=== PATIENT | male | born 1990 | race American Indian/Alaskan Native ===

== ENCOUNTER 2019-08-03 16:30 | Emergency (ER) | payer OTHER, SELFPAY ==
[2019-08-03 16:33] VITALS: BP 118/77; PULSE 66; RESP 14; TEMP 36.7; O2SAT 100
--- NOTE | 2019-08-03 16:55 | DI.RAD.S_ITS ---
PROCEDURE: XR CHEST 2V INDICATIONS: near syncopal episode TECHNIQUE: 2 views of the chest were acquired. COMPARISON: None. FINDINGS: Surgical changes and devices: None. Lungs and pleura: Lungs are clear. No pleural effusions or pneumothorax. Mediastinum: Mediastinal contours are normal. Heart size is normal. Bones and chest wall: No suspicious bony abnormalities. Soft tissues appear unremarkable. IMPRESSION: No acute cardiopulmonary findings. Dictated by: Marisela Russell M.D. on 08/03/2019 at 17:26 Approved by: Marisela Russell M.D. on 08/03/2019 at 17:26
[2019-08-03 17:14] LABS: Add Manual Diff / Slide Review NO; Basophils Absolute Auto 100 /uL (0-100); Basophils Percent Auto 0.9 % (0-2); Eosinophils Absolute Auto 100 /uL (0-450); Eosinophils Percent Auto 1.7 % (2-4); Hematocrit 41.8 % (41-53); Hemoglobin 14.5 g/dL (13.5-17.5); Lymphocytes Absolute Auto 1300 /uL (1100-4500); Lymphocytes Percent Auto 15.8 % (25-40); Mean Corpuscular HGB Conc 34.7 % (30-36); Mean Corpuscular Hemoglobin 29.5 PG (26-34); Mean Corpuscular Volume 84.9 fL (80-100); Monocytes Absolute Auto 700 /uL (0-900); Monocytes Percent Auto 8.4 % (3-14); Neutrophils Absolute Auto 6100 /uL (1500-7000); Neutrophils Percent Auto 73.2 % (50-75); Platelet Count 248 X10^3/uL (150-400); Red Blood Cell Count 4.92 X10^6/uL (4.5-5.9); Red Cell Distribution Width 13.9 % (11.6-14.8); White Blood Cell Count 8.3 X10^3/uL (4.5-11.0)
[2019-08-03] MEDS: SODIUM CHLORIDE 0.9% 1,000 ML 1000 ML IV (17:16)
[2019-08-03 17:28] LABS: Alanine Aminotransferase 23 IU/L (21-72); Albumin 4.4 g/dL (3.5-5.0); Albumin Globulin Ratio 1.4 (1.0-2.8); Alkaline Phosphatase 58 U/L (38-126); Aspartate Aminotransferase 28 IU/L (17-59); Bilirubin Total 0.9 mg/dL (0.2-1.3); Blood Urea Nitrogen 15 mg/dL (9-20); Calcium 9.1 mg/dL (8.4-10.2); Carbon Dioxide 28 mmol/L (22-32); Chloride 99 mmol/L (98-107); Estimated Glomerular Filt Rate > 60.0 mL/min (>60); Globulin 3.1 g/dL (1.7-4.1); Glucose 98 mg/dL (70-100); HEMOLYSIS < 15 (0-50); Potassium 4.7 mmol/L (3.4-5.1); Sodium 136 mmol/L (137-145); Total Protein 7.5 g/dL (6.3-8.2)
[2019-08-03 17:40] LABS: Troponin I < 0.012 ng/mL (0.01-0.034)
--- NOTE | 2019-08-03 17:47 | ED.SYNCOPE ---
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 Patient reports he felt lightheaded and sweaty, had blurred vision, was pale prior the near syncopal episode at work today. He denied since spinning sensation, chest pain, palpitation, irregular heart rhythm, breathing difficulty prior to this. Patient reports he fell well yesterday and this morning. He denied nausea, vomiting, or diarrhea, or any abdominal pain. He had not had similar symptoms in the past. 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 He felt improved after this but was unable to seen by medical personnel [place] and came to ED for an evaluation. He denies using illicit substances and is very light occasional drinker. Patient denies have premature from cardiac history in family. Related Data Allergies Allergy/AdvReac Type Severity Reaction Status Date / Time No Known Drug Allergies Allergy Verified 08/03/19 16:35 Review of Systems <LESVIA Juan - Last Filed: 08/04/19 01:12> Review of Systems Narrative: General: Denies fever, chills, fatigue, malaise, sweats. HEENT: See HPI Respiratory: Denies dyspnea, cough, wheezing, hemoptysis, sputum. Cardiovascular: Denies chest pain, palpitations, orthopnea, edema. Gastrointestinal: Denies nausea, vomiting, abdominal pain, diarrhea, constipation, melena. : Denies dysuria, frequency, incontinence, hematuria, urinary retention. Musculoskeletal: Denies weakness, joint pain or bony pain. Skin: Denies rash, skin lesions, or other. Neurologic: Denies weakness, headache, numbness, change in speech, confusion, seizures, incoordination. Psychiatric: No concerning psychosocial issues. 12-point review of systems is negative except for those stated above. PFSH <LESVIA Juan - Last Filed: 08/04/19 01:12> Social History Smoking Status: Never smoker Social History Smoking Status: Never smoker Exam <LESVIA Juan - Last Filed: 08/04/19 01:12> Narrative Exam Narrative: General appearance: well developed, well nourished, in no acute distress. Head: normocephalic, atraumatic, no scalp lesions, non-tender. Eye: pupil equal, round. EOMI. Nose: nares patent. Oral: mucosa moist. Neck/Thyroid: neck supple, full range of motion, no visible masses. Skin: no suspicious rashes, lesions over visible areas. Warm and dry. Heart: no clubbing, no cyanosis, no edema. Lungs: Breathing even and unlabored. No stridor. No accessory muscles used. Chest: normal shape and expansion. Abdomen: non-obese, non-distended. Neurologic: alert and oriented. Cognitive exam, MANAGER SAP and PNS grossly intact on informal exam. Psych: good eye contact, normal affect. Initial Vital Signs Initial Vital Signs: Vital Signs Temperature 98.1 F 08/03/19 16:33 Pulse Rate 66 08/03/19 16:33 Respiratory Rate 14 08/03/19 16:33 Blood Pressure 118/77 08/03/19 16:33 Pulse Oximetry 100 08/03/19 16:33 <Manish Huber DO - Last Filed: 08/11/19 19:15> Initial Vital Signs Initial Vital Signs: Vital Signs Temperature 98.1 F 08/03/19 16:33 Pulse Rate 66 08/03/19 16:33 Respiratory Rate 14 08/03/19 16:33 Blood Pressure 118/77 08/03/19 16:33 Pulse Oximetry 100 08/03/19 16:33 Scores <LESVIA Juan - Last Filed: 08/04/19 01:12> GCS [place] coma scale eye opening: Spontaneous [place] coma scale verbal response: Orientated [place] coma scale motor response: Obey commands [place] coma scale total score: 15 Course <LESVIA Juan - Last Filed: 08/04/19 01:12> Orders Ordered: Discontinued Medications Sodium Chloride (Normal Saline 0.9%) 1,000 mls @ 1,000 mls/hr IV BOLUS ONE Stop: 08/03/19 17:54 Last Infusion: 08/03/19 18:41 Dose: 0 mls/hr Documented by: Admin: 08/03/19 17:16 Dose: 1,000 mls/hr Documented by: ROSALINDA Vital Signs Vital signs: Vital Signs - 8 hr 08/03/19 18:00 Pulse Rate 61 Respiratory Rate 13 Blood Pressure [Left Arm] 124/75 Pulse Oximetry 98 <Manish Huber DO - Last Filed: 08/11/19 19:15> Orders Ordered: Discontinued Medications Sodium Chloride (Normal Saline 0.9%) 1,000 mls @ 1,000 mls/hr IV BOLUS ONE Stop: 08/03/19 17:54 Last Infusion: 08/03/19 18:41 Dose: 0 mls/hr Documented by: Admin: 08/03/19 17:16 Dose: 1,000 mls/hr Documented by: ROSALINDA Vital Signs Vital signs: Vital Signs - 8 hr 08/03/19 18:00 Pulse Rate 61 Respiratory Rate 13 Blood Pressure [Left Arm] 124/75 Pulse Oximetry 98 MDM - Syncope <LESVIA Juan - Last Filed: 08/04/19 01:12> Differential Diagnosis Differential diagnosis: Likely other (near syncope, dehydration, low blood sugar) Medical Records Attestation: I reviewed the patient's medical records. Lab Data Attestation: I reviewed the patient's lab results. Result diagrams: 08/03/19 17:09 08/03/19 17:09 Labs: Lab Results 08/03/19 08/03/19 Range/Units 17:09 17:09 WBC 8.3 (4.5-11.0) X10^3/uL RBC 4.92 (4.5-5.9) X10^6/uL Hgb 14.5 (13.5-17.5) g/dL Hct 41.8 (41-53) % MCV 84.9 (80-100) fL MCH 29.5 (26-34) PG MCHC 34.7 (30-36) % RDW 13.9 (11.6-14.8) % Plt Count 248 (150-400) X10^3/uL Neut % (Auto) 73.2 (50-75) % Lymph % (Auto) 15.8 L (25-40) % [place] % (Auto) 8.4 (3-14) % Eos % (Auto) 1.7 L (2-4) % Baso % (Auto) 0.9 (0-2) % Neut # (Auto) 6100 (7781-3506) /uL Lymph # (Auto) 1300 (3429-7592) /uL [place] # (Auto) 700 (0-900) /uL Eos # (Auto) 100 (0-450) /uL Baso # (Auto) 100 (0-100) /uL Sodium 136 L (137-145) mmol/L Potassium 4.7 (3.4-5.1) mmol/L Chloride 99 (98-107) mmol/L Carbon Dioxide 28 (22-32) mmol/L BUN 15 (9-20) mg/dL Creatinine 1.00 (0.66-1.25) mg/dL Estimated GFR > 60.0 (>60) mL/min BUN/Creatinine Ratio 15.0 (6-22) Glucose 98 (70-100) mg/dL Calcium 9.1 (8.4-10.2) mg/dL Total Bilirubin 0.9 (0.2-1.3) mg/dL AST 28 (17-59) IU/L ALT 23 (21-72) IU/L Alkaline Phosphatase 58 (38-126) U/L Troponin I < 0.012 (0.01-0.034) ng/mL Total Protein 7.5 (6.3-8.2) g/dL Albumin 4.4 (3.5-5.0) g/dL Globulin 3.1 (1.7-4.1) g/dL Albumin/Globulin Ratio 1.4 (1.0-2.8) Urine Dip Bedside Urine Glucose Negative Bedside Urine Ketone - Negative Urine Specific [place] 1.005 Bedside Urine Occult Blood - Negative Bedside Urine pH 6.5 Bedside Urine Protein - Negative Bedside Urine Urobilinogen - Negative Bedside Urine Nitrite - Negative Bedside Urine Leukocytes - Negative Esterase Imaging Data Chest x-ray: Radiologist's impression: [address] [address] XRay Report Signed Patient: Davi Tony#: [id number] : 1990Acct:[id number] Age/Sex: MDate of Service: 08/03/19 Loc: ED Accession Number: [id number] Procedure: XR chest 2V Ordering Provider: Calixto Jordan PROCEDURE: XR CHEST 2V INDICATIONS: near syncopal episode TECHNIQUE: 2 views of the chest were acquired. COMPARISON: None. FINDINGS: Surgical changes and devices: None. Lungs and pleura: Lungs are clear. No pleural effusions or pneumothorax. Mediastinum: Mediastinal contours are normal. Heart size is normal. Bones and chest wall: No suspicious bony abnormalities. Soft tissues appear unremarkable. IMPRESSION: No acute cardiopulmonary findings. Dictated by: Marisela Russell M.D. on 08/03/2019 at 17:26 Approved by: Marisela Russell M.D. on 08/03/2019 at 17:26 ECG Data Attestation: I personally reviewed and interpreted this ECG as follows: Prior ECG tracings: not available for review Interpretation: Sinus rhythm at rate 60. Normal [place]. No ST depression or elevation. MDM Narrative Medical decision making narrative: The patient presents to ED with near syncopal episode at work. However when he came in to ED his symptoms were resolved. Patient denies recent illness or chronic medical problems in the past. The EKG was normal sinus rhythm. Chest x-ray showed no acute findings. Blood tests were unremarkable including troponin. Urine test was negative for infection. Patient denied having any discomfort, he works in door and felt well and denied having any pain prior to the incident. The patient had hydrating himself with sports drink prior coming into ED and he felt improved at this time. He also was hydrated with normal saline 1 L during ED stay. His physical exam was benign. I am uncertain why patient had near syncopal episode at this time. I discussed with patient on return precautions. Patient was advised to follow up with [place] [facility] for possible further testing and evaluations if he has recurring symptoms. <Manish Huber, - Last Filed: 08/11/19 19:15> Lab Data Labs: Lab Results 08/03/19 08/03/19 Range/Units 17:09 17:09 WBC 8.3 (4.5-11.0) X10^3/uL RBC 4.92 (4.5-5.9) X10^6/uL Hgb 14.5 (13.5-17.5) g/dL Hct 41.8 (41-53) % MCV 84.9 (80-100) fL MCH 29.5 (26-34) PG MCHC 34.7 (30-36) % RDW 13.9 (11.6-14.8) % Plt Count 248 (150-400) X10^3/uL Neut % (Auto) 73.2 (50-75) % Lymph % (Auto) 15.8 L (25-40) % [place] % (Auto) 8.4 (3-14) % Eos % (Auto) 1.7 L (2-4) % Baso % (Auto) 0.9 (0-2) % Neut # (Auto) 6100 (7821-7770) /uL Lymph # (Auto) 1300 (7935-7553) /uL [place] # (Auto) 700 (0-900) /uL Eos # (Auto) 100 (0-450) /uL Baso # (Auto) 100 (0-100) /uL Sodium 136 L (137-145) mmol/L Potassium 4.7 (3.4-5.1) mmol/L Chloride 99 (98-107) mmol/L Carbon Dioxide 28 (22-32) mmol/L BUN 15 (9-20) mg/dL Creatinine 1.00 (0.66-1.25) mg/dL Estimated GFR > 60.0 (>60) mL/min BUN/Creatinine Ratio 15.0 (6-22) Glucose 98 (70-100) mg/dL Calcium 9.1 (8.4-10.2) mg/dL Total Bilirubin 0.9 (0.2-1.3) mg/dL AST 28 (17-59) IU/L ALT 23 (21-72) IU/L Alkaline Phosphatase 58 (38-126) U/L Troponin I < 0.012 (0.01-0.034) ng/mL Total Protein 7.5 (6.3-8.2) g/dL Albumin 4.4 (3.5-5.0) g/dL Globulin 3.1 (1.7-4.1) g/dL Albumin/Globulin Ratio 1.4 (1.0-2.8) Urine Dip Bedside Urine Glucose Negative Bedside Urine Ketone - Negative Urine Specific [place] 1.005 Bedside Urine Occult Blood - Negative Bedside Urine pH 6.5 Bedside Urine Protein - Negative Bedside Urine Urobilinogen - Negative Bedside Urine Nitrite - Negative Bedside Urine Leukocytes - Negative Esterase Discharge Plan Departure Patient Disposition: Home Clinical Impression: Near syncope Discharge Date/Time: 08/03/19 18:42 Instructions: DI for Syncope in Adults (Fainting) Activity Restrictions/Additional Instructions: You have been diagnosed with [near syncope, almost fainting. Your EKG, chest x-ray, blood and urine tests look good and unremarkable. You felt better when you arrived in ED and received 1 L of normal saline.] What to do: *Take your medications as directed. There is no new medication to go home with *Follow up with your primary care provider in 2-3 days, call for an appointment. Let them know you were seen in the ED and that we asked you to be seen in follow up. *Return to ED if you have any new, worsening, or concerning symptoms, such as [chest pain, breathing difficulty, unable to tolerate fluids, dizziness, fainting, fever or any acute concerns]. Referrals: [facility] [Outside] <Manish Huber DO - Last Filed: 08/11/19 19:15> Sign Out Provider Sign Out Attestation: I was available for consultation during this patient's emergency department encounter
[2019-08-03 18:00] VITALS: BP 124/75; PULSE 61; RESP 13; O2SAT 98
== END 2019-08-03 18:42 | disposition home or self-care (01) ==
PROVIDERS: Emergency Medicine; Emergency Provider Nurse Practitioner Family
DX: R55 Syncope and collapse (principal)
CPT/HCPCS: 36415; 36591; 71046; 80053; 81003; 84484; 85025; 93005; 96360; 99283; 99285